=== PATIENT | male | born 1980 | race Caucasian/White ===

== ENCOUNTER 2019-06-15 09:29 | Emergency (ER) | payer BC, OTHER ==
[2019-06-15] MEDS ORDERED: Meclizine 25 MG Tab PO ONE (09:47)
[2019-06-15] MEDS ORDERED: Ondansetron 4 MG Tab.DIS PO ONE (09:48)
--- NOTE | 2019-06-15 09:54 | EDM.PDOC ---
ED HPI GENERAL MEDICAL PROBLEM - General Chief Complaint: Cardiovascular Problem Stated Complaint: dizzy Time Seen by Provider: 06/15/19 09:50 Source of Information: Reports: Patient - History of Present Illness INITIAL COMMENTS - FREE TEXT/NARRATIVE: The patient presents to the emergency department secondary to the complaint of dizziness. The patient woke up and he felt a strong dizziness sensation worse with certain head movements. When he got up everything was spinning around and he threw up. Symptoms seem to be better if he is lying flat. He denies any head injuries, no fevers or chills, no unusual headaches, no visual deficits, no speech slurring, no unilateral weakness, no palpitations, no other acute complaints. - Related Data Allergies Allergy/AdvReac Type Severity Reaction Status Date / Time No Known Allergies Allergy Verified 06/15/19 09:33 Home Meds: Home Meds Omeprazole [Prilosec] 1 tab PO DAILY 07/17/14 [History] Meclizine HCl [Motion Sickness Relief] 50 mg PO Q6HR PRN #40 tablet 06/15/19 [Rx ] Ondansetron [Zofran ODT] 4 mg PO Q4H PRN #20 tab.dis 06/15/19 [Rx] Sildenafil [Revatio] 20 mg PO TID 06/15/19 [History] Past Medical History Musculoskeletal History: Reports: Fracture Other Musculoskeletal History: R leg - Infectious Disease History Infectious Disease History: Reports: None - Past Surgical History Musculoskeletal Surgical History: Reports: Arthroscopic Knee Social & Family History - Family History Family Medical History: Noncontributory - Tobacco Use Smoking Status *Q: Never Smoker Second Hand Smoke Exposure: No - Caffeine Use Caffeine Use: Reports: Coffee - Recreational Drug Use Recreational Drug Use: No ED ROS GENERAL - Review of Systems Review Of Systems: See Below (Positive for vertigo, negative for weakness, negative speech slurring, negative for headache, all other Positives and pertinent negatives as per HPI. All other pertinent systems were reviewed and are negative) ED EXAM, GENERAL - Physical Exam Exam: See Below Free Text/Narrative:: Normal Adult Constitutional: Nontoxic but looks like he does not feel well, vertiginous sensation when sitting up, improved when lying flat HEENT.: Normocephalic, PERRL, EOMI, External ears are atraumatic, nares are patent without epistaxis Neck: Normal range of motion, Trachea Midline, No stridor Respiratory.: No respiratory distress, No tachypnea, Lungs Clear to Auscultation bilaterally without wheezes, rales, or rhonchi Cardiovascular.: Regular rate and Rhythm without murmurs, rubs, or gallops, good peripheral perfusion GI: Abdomen soft and non tender, no masses, no rebound, rigidity, or guarding Genital Urinary: Deferred Musculoskeletal: Good range of motion. All 4 extremities present and atraumatic , no edema Back: Full Range of Motion Skin: Warm, Dry, Color is ethnicity appropriate, No acute rash. Lymphatic: No lymphadenopathy noted Neurological: Alert, Awake and oriented x 3, No focal deficits noted appreciate , cranial nerves grossly intact, no nystagmus, GCS 15 Psych: Affect, Judgement, mood normal Course - Vital Signs Text/Narrative:: History and exam are consistent with peripheral vertigo -there is nothing per history or exam consistent with malignant pathology such as a head injury, brain mass, intracranial hemorrhage, cerebellar CVA, etc. The patient will be provided with meclizine 50 mg orally and Zofran 4 mg orally in the ER and a prescription for each and he has PCP follow-up. Last Recorded V/S: Last Vital Signs Temp 35.4 C 06/15/19 09:35 Pulse 80 06/15/19 09:35 Resp 18 06/15/19 09:35 BP 164/83 H 06/15/19 09:35 Pulse Ox 97 06/15/19 09:35 - Orders/Labs/Meds Orders: Active Orders 24 hr Category Date Time Status EKG 12 Lead [EKG Documentation Completion] [RC] STAT Care 06/15/19 09:42 Active Ondansetron [Zofran ODT] Med 06/15/19 09:48 Once 4 mg PO ONETIME ONE Meds: Medications Discontinued Medications Generic Name Dose Route Start Last Admin Trade Name Freq PRN Reason Stop Dose Admin Meclizine HCl 50 mg 06/15/19 09:47 Antivert PO 06/15/19 09:48 ONETIME ONE Departure - Departure Time of Disposition: 09:53 Disposition: Home, Self-Care 01 Condition: Good Clinical Impression: Vertigo Instructions: Vertigo, [id number] Referrals: Filiberto Alves MD [Primary Care Provider] - Sepsis Event Note - Evaluation Sepsis Screening Result: No Definite Risk - Focused Exam Vital Signs: Vital Signs Temp Pulse Resp BP Pulse Ox 06/15/19 09:35 35.4 C 80 18 164/83 H 97 Date Exam was Performed: 06/15/19 Time Exam was Performed: 09:48 - My Orders Last 24 Hours: My Active Orders 06/15/19 09:42 EKG 12 Lead [EKG Documentation Completion] [RC] STAT 06/15/19 09:48 Ondansetron [Zofran ODT] 4 mg PO ONETIME ONE - Assessment/Plan Last 24 Hours: My Active Orders 06/15/19 09:42 EKG 12 Lead [EKG Documentation Completion] [RC] STAT 06/15/19 09:48 Ondansetron [Zofran ODT] 4 mg PO ONETIME ONE
[2019-06-15 10:37] VITALS: BP 144/69; PULSE 77
== END 2019-06-15 10:37 | disposition home or self-care (01) ==
LOC: MW.ED 09:29
DX: R42 Dizziness and giddiness (principal); Z79.899 Other long term (current) drug therapy
CPT/HCPCS: 93005; 99284; A9270; 99283

== ENCOUNTER 2021-10-20 18:55 | Emergency (ER) | payer SELFPAY ==
[2021-10-20] MEDS ORDERED: Clindamycin HCl 150 MG Cap PO STA (20:18)
[2021-10-20] MEDS ORDERED: Diphtheria,Pertussis(Acell),Tetanus Vaccine 0.5 ML Syringe IM ONE (20:18)
[2021-10-20 20:49] VITALS: BP 122/66; PULSE 75
== END 2021-10-20 20:52 | disposition home or self-care (01) ==
LOC: MW.ED 18:55
DX: S01.512A Laceration without foreign body of oral cavity, initial encounter (principal); Z23 Encounter for immunization; W22.09XA Striking against other stationary object, initial encounter; Y93.62 Activity, american flag or touch football
CPT/HCPCS: 90471; 90715; 99282; A9270